=== PATIENT | female | born 1960 | race Caucasian/White ===

== ENCOUNTER 2016-09-20 17:20 | Emergency (ER) | payer OTHER ==
[~2016-09-20] VITALS: Ht 167.6 cm; Wt 84.0 kg
[~2016-09-20 17:20] MED LIST: ASCORBIC ACID500 M3 PO; ATORVASTATIN CA40 MG PO; CALCIUM CITRAT200 MG PO; CALTRATE PLUS1 EACH PO; CELEXA40 MG PO; CLARITIN10 MG PO; COLACE100 MG PO; CYANOCOBALAM1000 MCG PO; Calcium Citrate PO; DESONIDE15 GM TP; DIAZEPAM5 MG PO; DILANTIN100 MG PO; DILAUDID4 MG PO; FEOSOL325 MG PO; FIBER GUMMIES1 EACH PO; FLONASE16 G1 BOTH NARES; GABAPENTIN400 MG PO; GABAPENTIN600 MG PO; GABAPENTIN800 MG PO; KEPPRA750 MG PO; LEVOTHYROXINE100 MCG PO; LEVOTHYROXINE50 MCG PO; LIBRAX, CLI1 CAPSULE PO; MAXALT10 MG PO; METFORMIN HCL500 MG PO; METRONIDAZOLE60 GM TP; MIRTAZAPINE30 MG PO; MULTIPLE VITAM1 EACH PO; MYRBETRIQ50 MG PO; OMEPRAZOLE20 MG PO; ORACEA40 MG PO; OXYCODONE HCL15 MG PO; OXYCONTIN15 MG PO; PROAIR HFA8.5 GM IH; PROBIOTIC1 EAC1 PO; SIMVASTATIN40 MG PO; STOOL SOFTENER100 M1 PO; TOPAMAX50 MG PO; TRAZODONE HCL100 MG PO; VALIUM5 MG PO; VENLAFAXINE HCL75 M3 PO; VITAMIN D-32000 UNI1 PO; [UNRECOGNIZED DRUG - OTHER] PO
[2016-09-20] MEDS ORDERED: LEXAPRO20 MG PO (20:27)
[2016-09-20] MEDS ORDERED: TOPAMAX50 MG PO (20:28)
[2016-09-20] MEDS ORDERED: OXYCODONE HCL15 MG PO (20:29)
[2016-09-20] MEDS ORDERED: ZOFRAN ODT4 MG PO (21:49)
[2016-09-20] MEDS ORDERED: MOTRIN600 MG PO (21:50)
[2016-09-20 22:32] VITALS: BP 136/85
== END 2016-09-20 22:37 | disposition home or self-care (01) ==
LOC: EME 17:20
DX: S00.03XA Contusion of scalp, initial encounter (principal); S06.0X0A Concussion without loss of consciousness, initial encounter; S16.1XXA Strain of muscle, fascia and tendon at neck level, initial encounter; W03.XXXA Other fall on same level due to collision with another person, initial encounter; G89.29 Other chronic pain; Z79.891 Long term (current) use of opiate analgesic; J45.909 Unspecified asthma, uncomplicated; Z98.84 Bariatric surgery status
CPT/HCPCS: 72040; 99281; 99284